=== PATIENT | female | born 1980 ===

== ENCOUNTER 2024-08-18 15:06 | Outpatient (AMB) | payer MEDICAID, SELFPAY ==
[2024-08-18 15:16] VITALS: BP 132/85; PULSE 86; RESP 18; TEMP 36.4; O2SAT 97; BMI 35.4
--- NOTE | 2024-08-18 15:16 | PD.RESCLINIC ---
Vital Signs 08/18/24 15:16 Height 1.65 m Height Method Stated Weight 96.672 kg Weight Measurement Method Standing Scale BMI 35.4 BP 132/85 H Blood Pressure Source Automatic Cuff Blood Pressure Location Right Upper Arm Position Sitting Respiration 18 Pulse 86 Pulse Source Monitor Temp 97.5 F Temp Source Temporal Artery Scan Pulse Oximetry (%) 97 Oxygen Delivery Method Room Air Allergies/Meds Allergies & Medications Allergies NKA* Allergy (Uncoded 08/18/24 15:17) Medication Reconciliation methylprednisolone 4 mg tablets in a dose pack (Medrol (Van)) 4 mg PO QAM #21 tabs 02/24/23 [Rx Confirmed 08/18/24] celecoxib 100 mg capsule 100 mg PO BID PRN pain 1 week #20 caps 08/18/24 [Rx] diclofenac 3 %-hyaluronate 2 %-niacinamide 4 % topical gel 10 ea topical TID PRN pain 1 month #30 grams 08/18/24 [Rx] diclofenac sodium 3 % topical gel 1 applic topical QID PRN pain 1 month #100 grams 08/19/24 [Rx] MA Intake Visit Data Collection New Patient or Established: Established Patient (seen at [facility] within 3 years) Seen by Clinical Staff ONLY (RN/MA): No Pain Present Currently: Yes Pain Location: Neck Pain scale:: 8 Pain Scale Used: Pop-[place]/Numerical [place] Operator Required: Yes PCP or OBGYN visit in last 3 months: No Hx Now: No Do You Feel Safe at Home: Yes Authorities Contacted: N/A Smoking Status Smoking Status: Never smoker Immunization / Flu Flu Vaccine in the Last 12 Months: No Flu Vaccine Exclusion Criteria: No Exclusion Criteria Past Medical History Social History SMOKING STATUS: Smoking status: Never smoker Patient Portal Questionaires Social History Tobacco History Smoking Status: Never smoker Domestic Abuse History Do You Feel Safe at Home: Yes Review of Systems Report any current symptoms Only answer those that you have currently: Past Medical History Past Medical History Have you ever been diagnosed with any of the following: History of Present Illness HPI Narrative Mr. Urena is a pleasant 44-year-old [place]-speaking female, who was last seen at our clinic in 2022 for plantar fasciitis and right foot pain. Patient has been in fairly good health since then. [facility] left shoulder and left arm pain. She also has some discomfort in the left anterior superior chest wall which radiates upwards into the neck and is also associated with left-sided headaches. Patient's symptoms started 48 hours ago and have remained about the same in intensity. As per daughter present at bedside patient is usually very active and engages in a lot of stripper black and white involving physical activity. Patient denies any fevers, crushing central chest pain, recent infections, travel or change in activity levels. She does complain of left hand pain primarily in the carpal tunnel region, which is worse on using the rolling paper cooking. Of note, patient's pain is reproducible when she presses her left neck and shoulder region, mainly the trapezius. Her left hand pain is also reproducible and she does endorse intermittent numbing of her fingers in the median nerve region. Review of Systems Review of Systems Narrative Review of Systems: GENERAL: Denies fevers/chills, diaphoresis. LT headaches HEENT: Denies headache or visual/hearing changes. Denies nasal discharge. NEURO: Denies unusual weakness or difficulty speaking. CARDIO: Denies chest pain, palpitations. PULM: Denies SOB, cough, wheezing. GI: Denies abdominal pain, no N/V, no C/D. Reports having BMs URO: Denies burning/itching/pain/urinary changes. 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 MSK/EXT/SKIN: LT shoulder pain, extending to the LT neck and down the LT arm PSYCH: Cooperative, pleasant mood & affect. The rest of the review of systems is otherwise negative. Objective/Exam Narrative Physical exam: Constitutional Alert, oriented x3 and comfortable HEENT Vision grossly intact. Patent nares. Trachea midline. Respiratory Chest normal on inspection and clear to auscultation bilaterally. Cardiovascular S1 and S2 audible, RRR. No murmurs or carotid bruit. No gross JVD. Abdominal Soft and non tender to palpation in all quadrants. BS + Genitourinary No bladder tenderness, no flank pain. Normal to palpation. Musculoskeletal Left shoulder and left arm tenderness (trapezius), reproducible with palaption. LT hand carpal tunnel tightness Neurological CN II - XII grossly intact. Extremity motor and sensation grossly intact. Skin Warm, dry and intact. No apparent lesions. Psychiatric Patient has a good affect, is cooperative. Assessment & Plan Diagnosis / Problem List (1) Spasm of left trapezius muscle: Status: Acute Assessment & Plan: - persistent left shoulder and left arm pain. - also has some discomfort in the left anterior superior chest wall which radiates upwards into the neck and is also associated with left-sided headaches. - patient's pain is reproducible when she presses her left neck and shoulder region, mainly the trapezius Plan: - Topical diclofenac 2% ointment ordered to apply in the left trapezius region - As needed celecoxib 100 mg can be used up to twice a day for severe pain - Counseled on physical therapy - Referral to see Dr Barnes in [place] for cardiac work up (2) Carpal tunnel syndrome of left wrist: Status: Acute Assessment & Plan: - does complain of left hand pain primarily in the carpal tunnel region, which is worse on using the rolling paper cooking. - usually very active and engages in a lot of stripper black and white involving physical activity. - Her left hand pain is also reproducible and she does endorse intermittent numbing of her fingers in the median nerve region. Plan: - Referral for orthopedics Dr. Clarke - If pain continues to persist, will get CT scan of left wrist Plan Follow up in 3 months May return earlier if symptoms persist Orders: Referrals Orthopedics Cardiology M79.602 - Pain in left arm Office Procedures [facility] Level of Care Nursing/Assessment Patient Status: Established Patient Nursing Assessment/Reassessment: Medication Reconciliation, Update PMH in EMR and Vital Signs Coordination of Care: Complex Care and Chronic Disease 1-5, Consent,records obtained, informed consent, Education Simp Pt/Fam, 1 Ins Authorization, Lab and Imaging orders and Staff clarify orders Established Patient Charge Established Patient Point Assignment: 115 Established Patient Point Charge: Level 3 (80-115)
== END 2024-08-18 15:52 | disposition home or self-care (01) ==
LOC: HODAHC 15:06
PROVIDERS: Supervising Provider Internal Medicine; Visit Provider Student in an Organized Health Care Education/Training Program
DX: M25.512 Pain in left shoulder (principal); M62.838 Other muscle spasm; G56.02 Carpal tunnel syndrome, left upper limb
CPT/HCPCS: 99213; G0463